=== PATIENT | female | born 1945 | race Hispanic/Latino ===

== ENCOUNTER 2018-03-30 15:18 | Emergency (ER) | payer MEDICARE ==
[~2018-03-30] VITALS: Ht 144.8 cm; Wt 56.8 kg
[2018-03-30] MEDS ORDERED: KCL 20MEQ/.9 SOD CHL 1,000 ML IV SCH ×2 (17:00→18:00)
[2018-03-30] MEDS ORDERED: POTASSIUM CHLORIDE 20 MEQ TAB CR PO STA (17:42)
[2018-03-30] MEDS ORDERED: POTASSIUM CHLORIDE 20 MEQ TAB CR PO NR (18:00)
--- NOTE | 2018-03-30 18:01 | NUR ---
VERIFIED WITH MD; ONLY ONE ORDER OF KCL PO OF 40 MEQ GIVEN AND THEN NS ONE LITER WITH 20 KCL MEQ GIVEN OVER 2 HRS ON PUMP.
--- NOTE | 2018-03-30 18:04 | NUR ---
MD WANTING TO ADMIT PT, PT FIRMLY STATES SHE WILL NOT STAY FOR ADMISSION.
[2018-03-30] MEDS ORDERED: ONDANSETRON HCL 4 MG ORAL DISINTEGRATING TAB PO ONE (18:15)
[2018-03-30 19:12] VITALS: BP 123/81
== END 2018-03-30 19:20 | disposition home or self-care (01) ==
LOC: EDBD 15:18 → FSED 15:18
DX: R10.13 Epigastric pain (principal); E86.0 Dehydration; A08.4 Viral intestinal infection, unspecified; K52.9 Noninfective gastroenteritis and colitis, unspecified; E87.6 Hypokalemia
CPT/HCPCS: 80048; 80076; 81003; 85025; 87086; 87186; 99283; Q0162

== ENCOUNTER 2021-09-11 10:15 | Inpatient (IN) | payer MEDICARE ==
[~2021-09-11] VITALS: Ht 144.8 cm; Wt 56.7 kg
[2021-09-11] MEDS ORDERED: ONDANSETRON HCL INJ 2MG/ML 2ML 2 MG/ML VIAL IV STA (10:51)
[2021-09-11] MEDS ORDERED: SODIUM CHLORIDE 0.9% 1000ML 1,000 ML IV STA (10:51)
[2021-09-11 10:59] LABS: BASOPHILS % 0.3 % (0.0-1.0); EOSINOPHILS % 0.2 % (0.0-6.0); HEMATOCRIT 36.8 % (34.2-44.1); HEMOGLOBIN 11.7 g/dL (12.0-16.0); LYMPHOCYTES # (AUTO) 1.7 (1.0-3.2); LYMPHOCYTES % 11.5 % (18.0-39.1); MEAN CORPUSCULAR HEMOGLOBIN 26.9 pg (28-32); MEAN CORPUSCULAR HGB CONC 31.8 g/dL (31-35); MEAN CORPUSCULAR VOLUME 84.6 fL (81-99); MONOCYTES # (AUTO) 0.6 (0.2-0.8); MONOCYTES % 4.1 % (4.4-11.3); NEUTROPHILS # (AUTO) 12.4 (2.1-6.9); NEUTROPHILS % 83.5 % (38.7-80.0); PLATELET COUNT 460 x10e3/uL (140-360); RED BLOOD COUNT 4.35 x10e6/uL (3.6-5.1); RED CELL DISTRIBUTION WIDTH 14.7 % (11.7-14.4)
[2021-09-11] MEDS ORDERED: DICYCLOMINE HCL 20 MG/2 ML VIAL IM ONE (11:00)
[2021-09-11 11:10] LABS: INR 0.91; PARTIAL THROMBOPLASTIN TIME 36.1 seconds (23.8-35.5); PROTHROMBIN TIME 13.1 seconds (11.9-14.5)
[2021-09-11 11:25] LABS: CLARITY,URINE TURBID (CLEAR); COLOR,URINE YELLOW (YELLOW)
[2021-09-11 11:26] LABS: BACTERIA,URINE MANY /HPF; EPITHELIAL CELLS,URINE MODERATE /LPF; KETONES,URINE 1+ (NEGATIVE); LEUKOCYTE ESTERASE ,URINE NEGATIVE (NEGATIVE); NITRITE,URINE POSITIVE (NEGATIVE); PROTEIN,URINE DIPSTICK 2+ (NEGATIVE); URINE UROBILINOGEN 0.2 mg/dL (0.2 - 1)
[2021-09-11 11:59] LABS: ALANINE AMINOTRANSFERASE 13 IU/L (0-55); ALBUMIN 3.4 g/dL (3.5-5.0); ALBUMIN/GLOBULIN RATIO 0.8 (0.8-2.0); ALKALINE PHOSPHATASE 101 IU/L (40-150); ANION GAP 18.6 mmol/L (8-16); BLOOD UREA NITROGEN 14 mg/dL (7-26); BUN/CREATININE RATIO 17 (6-25); CALCIUM 9.2 mg/dL (8.4-10.2); CARBON DIOXIDE 23 mmol/L (22-29); CHLORIDE 103 mmol/L (98-107); CREATINE KINASE 43 IU/L (29-168); CREATININE, SERUM 0.82 mg/dL (0.57-1.11); GLUCOSE 126 mg/dL (74-118); LIPASE 138 U/L (8-78); MAGNESIUM 2.1 MG/DL (1.3-2.1); POTASSIUM 3.6 mmol/L (3.5-5.1); SODIUM 141 mmol/L (136-145)
[2021-09-11] MEDS ORDERED: IOPAMIDOL 370 MG/ML 100 ML INFUS..BTL INJ ONE (12:57)
[2021-09-11] MEDS ORDERED: Morphine 2mg Syringe 2 MG/ML SYR IV PRN (14:30)
[2021-09-11] MEDS ORDERED: ONDANSETRON HCL INJ 2MG/ML 2ML 2 MG/ML VIAL IV PRN ×2 (14:30→14:45)
[2021-09-11] MEDS ORDERED: MELATONIN 5 MG TABLET PO PRN (14:45)
[2021-09-11] MEDS ORDERED: ACETAMINOPHEN 325 MG TAB PO PRN (14:45)
[2021-09-11] MEDS ORDERED: CHLORASEPTIC SPRAY 177 ML BTL MM PRN (14:45)
[2021-09-11] MEDS ORDERED: SIMETHICONE 80 MG CHEW PO PRN (14:45)
[2021-09-11] MEDS ORDERED: DIPHENHYDRAMINE HCL 25 MG CAP PO PRN (14:45)
[2021-09-11] MEDS ORDERED: DOCUSATE SODIUM 100 MG CAP PO PRN (14:45)
[2021-09-11] MEDS ORDERED: BENZONATATE 100 MG CAP PO PRN (14:45)
[2021-09-11] MEDS ORDERED: ALBUTEROL/IPRATROPIUM 3 ML NEB NEB PRN (14:45)
[2021-09-11] MEDS ORDERED: DEXTROSE 50% SYRINGE 50 ML IV PRN (14:45)
[2021-09-11] MEDS ORDERED: HYDRALAZINE HCL 20 MG/ML VIAL IV PRN (14:45)
[2021-09-11] MEDS ORDERED: LIDOCAINE 4% PATCH TP PRN (14:45)
[2021-09-11] MEDS: DEXTROSE 5%/0.9% SOD CHL 1,000 ML IV SCH (15:14)
[2021-09-11] MEDS: ENOXAPARIN SOD INJ 40 MG/0.4 ML SYR SC SCH (17:48)
[2021-09-11 19:48] LABS: CREATINE KINASE 30 IU/L (29-168)
[2021-09-11 20:00] VITALS: BP 111/70
[2021-09-12] VITALS (7 sets, daily range): BP systolic 119–141; BP diastolic 50–69
[2021-09-12] MEDS: DEXTROSE 5%/0.9% SOD CHL 1,000 ML IV SCH ×3 (03:11→21:50)
[2021-09-12 06:46] LABS: BASOPHILS % 0.3 % (0.0-1.0); EOSINOPHILS # (AUTO) 0.2 (0.0-0.4); HEMATOCRIT 29.2 % (34.2-44.1); HEMOGLOBIN 9.1 g/dL (12.0-16.0); LYMPHOCYTES # (AUTO) 1.9 (1.0-3.2); LYMPHOCYTES % 24.9 % (18.0-39.1); MEAN CORPUSCULAR HEMOGLOBIN 26.9 pg (28-32); MEAN CORPUSCULAR HGB CONC 31.2 g/dL (31-35); MEAN CORPUSCULAR VOLUME 86.4 fL (81-99); MONOCYTES # (AUTO) 0.7 (0.2-0.8); MONOCYTES % 8.6 % (4.4-11.3); NEUTROPHILS # (AUTO) 4.8 (2.1-6.9); NEUTROPHILS % 63.7 % (38.7-80.0); PLATELET COUNT 330 x10e3/uL (140-360); RED BLOOD COUNT 3.38 x10e6/uL (3.6-5.1)
[2021-09-12 07:19] LABS: CREATINE KINASE 31 IU/L (29-168)
[2021-09-12 07:30] LABS: ALBUMIN 2.5 g/dL (3.5-5.0); ALBUMIN/GLOBULIN RATIO 0.8 (0.8-2.0); ANION GAP 9.7 mmol/L (8-16); CALCIUM 7.3 mg/dL (8.4-10.2); CREATININE, SERUM 0.71 mg/dL (0.57-1.11)
[2021-09-12 07:50] LABS: POTASSIUM 2.7 mmol/L (3.5-5.1)
[2021-09-12] MEDS: POTASSIUM CHLORIDE 20 MEQ TAB CR PO PRN (08:16)
[2021-09-12] MEDS: PANTOPRAZOLE SOD 40 MG TABEC PO SCH (08:16)
[2021-09-12] MEDS: POTASSIUM CHLORIDE 10MEQ/100ML 100 ML IV SCH ×2 (08:57→09:23)
[2021-09-12] MEDS: ENOXAPARIN SOD INJ 40 MG/0.4 ML SYR SC SCH (17:08)
[2021-09-13] VITALS (7 sets, daily range): BP systolic 124–140; BP diastolic 56–65
[2021-09-13] MEDS: DEXTROSE 5%/0.9% SOD CHL 1,000 ML IV SCH (07:30)
[2021-09-13] MEDS: PANTOPRAZOLE SOD 40 MG TABEC PO SCH (07:30)
[2021-09-13 11:30] LABS: HEMATOCRIT 28.3 % (34.2-44.1)
[2021-09-13 11:46] LABS: ANION GAP 11.8 mmol/L (8-16); BLOOD UREA NITROGEN < 5 mg/dL (7-26); CALCIUM 7.5 mg/dL (8.4-10.2); CARBON DIOXIDE 24 mmol/L (22-29); CHLORIDE 108 mmol/L (98-107); GLUCOSE 107 mg/dL (74-118); SODIUM 141 mmol/L (136-145)
[2021-09-13 11:47] LABS: BUN/CREATININE RATIO 7 (6-25)
[2021-09-13 11:48] LABS: POTASSIUM 2.8 mmol/L (3.5-5.1)
[2021-09-13] MEDS: POTASSIUM CHLORIDE 20 MEQ TAB CR PO PRN (12:30)
[2021-09-13] MEDS ORDERED: POTASSIUM CHLORIDE 20 MEQ TAB CR PO NR ×2 (13:06→16:10)
[2021-09-13] MEDS: ENOXAPARIN SOD INJ 40 MG/0.4 ML SYR SC SCH (17:38)
[2021-09-14 01:06] VITALS: BP 142/68
[2021-09-14 06:50] LABS: ANION GAP 12.1 mmol/L (8-16); BLOOD UREA NITROGEN < 5 mg/dL (7-26); CARBON DIOXIDE 25 mmol/L (22-29); CHLORIDE 106 mmol/L (98-107); CREATININE, SERUM 0.67 mg/dL (0.57-1.11); GLUCOSE 93 mg/dL (74-118); POTASSIUM 3.1 mmol/L (3.5-5.1); SODIUM 140 mmol/L (136-145)
[2021-09-14 06:52] LABS: BUN/CREATININE RATIO 7 (6-25)
[2021-09-14 08:38] VITALS: BP 131/73
[2021-09-14] MEDS: PANTOPRAZOLE SOD 40 MG TABEC PO SCH (09:49)
[2021-09-14 09:51] VITALS: BP 131/73
[2021-09-14] MEDS ORDERED: CEFDINIR300 MG PO (09:57)
[2021-09-14] MEDS ORDERED: POTASSIUM CHLORIDE 20 MEQ TAB CR PO ONE (10:30)
[2021-09-14] MEDS: POTASSIUM CHLORIDE 20 MEQ TAB CR PO PRN (10:50)
[2021-09-14 11:38] VITALS: BP 141/74
[2021-09-14] MEDS ORDERED: ONDANSETRON HCL 4 MG ORAL DISINTEGRATING TAB PO PRN (13:15)
== END 2021-09-14 13:32 | disposition home or self-care (01) | DRG 389 ==
LOC: ER 10:36 → EDBD 10:36 → ERHOLD 14:33 → MED/SURG2 18:25
PROVIDERS: ADMIT Internal Medicine; ATTEND Internal Medicine
DX: K56.600 Partial intestinal obstruction, unspecified as to cause (principal); N39.0 Urinary tract infection, site not specified; N17.9 Acute kidney failure, unspecified; K57.30 Diverticulosis of large intestine without perforation or abscess without bleeding; Z20.822 Contact with and (suspected) exposure to COVID-19
CPT/HCPCS: 36415; 74018; 74019; 74177; 80048; 80053; 81001; 82550; 82553; 83690; 83735; 84484; 85014; 85018; 85025; 85610; 85730; 87086; 87186; 93005; 94799; 99284; J0500; J1650; J2405; J2543; J3480; J7030; J7042; Q9967

== ENCOUNTER 2022-02-23 15:06 | Emergency (ER) | payer SELFPAY ==
[~2022-02-23] VITALS: Ht 144.8 cm; Wt 56.7 kg
[~2022-02-23 15:06] MED LIST: CEFDINIR300 MG PO
[2022-02-23] MEDS ORDERED: SODIUM CHLORIDE 0.9% 1000ML 1,000 ML IV STA (15:55)
[2022-02-23 16:21] LABS: BASOPHILS % 0.5 % (0.0-1.0); EOSINOPHILS # (AUTO) 0.1 (0.0-0.4); EOSINOPHILS % 1.4 % (0.0-6.0); HEMATOCRIT 34.2 % (34.2-44.1); HEMOGLOBIN 10.2 g/dL (12.0-16.0); LYMPHOCYTES # (AUTO) 2.1 (1.0-3.2); LYMPHOCYTES % 24.8 % (18.0-39.1); MEAN CORPUSCULAR HEMOGLOBIN 26.6 pg (28-32); MEAN CORPUSCULAR HGB CONC 29.8 g/dL (31-35); MEAN CORPUSCULAR VOLUME 89.1 fL (81-99); MONOCYTES # (AUTO) 0.6 (0.2-0.8); MONOCYTES % 7.6 % (4.4-11.3); NEUTROPHILS # (AUTO) 5.4 (2.1-6.9); NEUTROPHILS % 65.3 % (38.7-80.0); PLATELET COUNT 407 x10e3/uL (140-360); RED BLOOD COUNT 3.84 x10e6/uL (3.6-5.1)
[2022-02-23 16:30] LABS: INR 0.88; PROTHROMBIN TIME 12.8 seconds (11.9-14.5)
[2022-02-23 16:31] LABS: PARTIAL THROMBOPLASTIN TIME 38.6 seconds (23.8-35.5)
[2022-02-23 16:37] LABS: CLARITY,URINE SL CLOUDY (CLEAR); COLOR,URINE YELLOW (YELLOW)
[2022-02-23 16:38] LABS: KETONES,URINE NEGATIVE (NEGATIVE); LEUKOCYTE ESTERASE ,URINE NEGATIVE (NEGATIVE); NITRITE,URINE POSITIVE (NEGATIVE); PROTEIN,URINE DIPSTICK TRACE (NEGATIVE); URINE UROBILINOGEN 0.2 mg/dL (0.2 - 1)
[2022-02-23 16:39] LABS: ALBUMIN 3.8 g/dL (3.5-5.0); ALBUMIN/GLOBULIN RATIO 1.2 (0.8-2.0); ANION GAP 14.1 mmol/L (8-16); CREATININE, SERUM 0.77 mg/dL (0.57-1.11); POTASSIUM 3.1 mmol/L (3.5-5.1)
[2022-02-23 16:46] LABS: CREATINE KINASE MB 0.4 ng/mL (0-5.0)
[2022-02-23 17:18] LABS: BACTERIA,URINE MANY /HPF; RBC,URINE 0-5 /HPF (0-5)
[2022-02-23] MEDS ORDERED: CEFUROXIME250 MG PO (17:27)
== END 2022-02-23 17:45 | disposition home or self-care (01) ==
LOC: ER 15:26
DX: K52.9 Noninfective gastroenteritis and colitis, unspecified (principal); N39.0 Urinary tract infection, site not specified; I10 Essential (primary) hypertension; K21.9 Gastro-esophageal reflux disease without esophagitis
CPT/HCPCS: 36415; 80053; 81001; 82550; 82553; 83735; 84484; 85025; 85610; 85730; 87086; 87186; 99284; C9113; J7030